=== PATIENT | male | born 1945 | race African-American/Black ===

== ENCOUNTER 2017-12-23 13:07 | Inpatient (IN) | payer MEDICARE ==
--- NOTE | 2017-12-23 16:03 | ER Document Report ---
ED General - General Chief Complaint: Shortness Of Breath Stated Complaint: SHORTNESS OF BREATH Time Seen by Provider: 12/23/17 14:15 Notes: Patient says that he has been feeling sick for the past 2-3 weeks, primarily with a cough and congestion. This morning, patient says he had more difficulty than usual getting his breath and felt he needed fresh air so he went outside. He came back again and said he still felt like he needed more fresh air and then proceeded to pass out in front of his . She witnessed the entire event and she is a registered nurse. This happened about 10:00 this morning. Patient had not eaten anything, but says he did not feel hypoglycemic. Patient was standing and ended up on the floor. He seemed dazed and confused and was very sweaty. Patient denies having any chest pains or abdominal pains. Denies any headache. says the episode lasted perhaps as much as 5 minutes. She says the patient did not have any seizure activity patient has not had previous passing out episodes. Patient is vacationing and visiting from [place] of [place]. - Related Data Allergies/Adverse Reactions: lidocaine Allergy (Verified 12/23/17 13:11) hydromorphone [From Dilaudid] Adverse Reaction (Verified 12/23/17 13:11) lemongrass Allergy (Uncoded 12/23/17 13:11) Home Medications: Metoprolol. CoQ10. Plavix. 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 EENT: Denies eye, ear, nose or mouth or throat pain or other symptoms. CARDIOVASCULAR: Denies chest pain. No swelling of either leg. RESPIRATORY: See HPI. GASTROINTESTINAL: Denies abdominal pain or nausea, vomiting, or diarrhea. GENITOURINARY: Denies difficulty or painful urinating, urinary frequency, blood in urine. MUSCULOSKELETAL: Denies back or neck pain. Denies joint pain or swelling. SKIN: Denies rash or skin lesions. NEUROLOGICAL: See HPI. Denies altered mental status. Denies headache. Denies sensory loss or motor deficits. ALL OTHER SYSTEMS REVIEWED AND NEGATIVE. Physical Exam - Vital signs Vitals: Temp Pulse Resp BP Pulse Ox 99.3 F 98 20 148/83 H 96 12/23/17 13:14 12/23/17 13:14 12/23/17 13:14 12/23/17 13:14 12/23/17 13:14 Interpretation: Normal - Notes Notes: PHYSICAL EXAMINATION: GENERAL: Well-appearing, in no acute distress. Vital signs are all normal. O2 sats 96% on room air. HEAD: Atraumatic, normocephalic. EYES: Pupils equal round and reactive to light, extraocular movements intact. ENT: oropharynx clear without exudates. Moist mucous membranes. NECK: Normal range of motion, supple. No bruits heard in the carotids. LUNGS: Breath sounds clear and equal bilaterally. HEART: Regular rate and rhythm with occasional ectopic beat heard but without murmurs. ABDOMEN: Soft, nontender. No guarding or rebound. No masses. No pulsatile masses felt. No bruits heard. BACK: No tenderness throughout entire back. EXTREMITIES: Normal range of motion without pain. No leg pain or tenderness and negative Homans bilaterally. NEUROLOGICAL: Normal speech, normal gait. Normal sensory, motor, and reflex exams. Awake, alert, and oriented x3. Cranial nerves normal. PSYCH: Normal mood, normal affect. SKIN: Warm, dry, no rashes. Course - Re-evaluation Re-evalutation: 12/23/17 19:18 Chest x-ray shows right lower lobe pneumonia. White count elevated modestly into the 13,000s. Patient's d-dimer was 1.24 so a CTA was ordered. The results were normal. - Vital Signs Vital signs: Temp Pulse Resp BP Pulse Ox 99.3 F 98 26 H 156/103 H 96 12/23/17 13:14 12/23/17 13:14 12/23/17 18:00 12/23/17 16:09 12/23/17 18:00 - Laboratory Result Diagrams: 12/23/17 17:04 12/23/17 17:04 Laboratory results interpreted by me: 12/23/17 12/23/17 12/23/17 16:09 17:04 17:04 WBC 13.3 H RDW 14.4 H Seg Neutrophils % 80.1 H Absolute Neutrophils 10.6 H D-Dimer Glucose 235 H Direct Bilirubin 0.5 H ALT 14 L Total Protein 9.4 H Urine Protein 100 H Urine Glucose (UA) >=500 H Urine Urobilinogen 2.0 H 12/23/17 17:04 WBC RDW Seg Neutrophils % Absolute Neutrophils D-Dimer 1.24 H Glucose Direct Bilirubin ALT Total Protein Urine Protein Urine Glucose (UA) Urine Urobilinogen - Diagnostic Test Radiology reviewed: Image reviewed, Reports reviewed - CTA shows no evidence of pulmonary embolus. Radiology results interpreted by me: 12/23/17 19:18 Chest x-ray shows right lower lobe infiltrates. - EKG Interpretation by [place] EKG shows normal: Sinus rhythm Rate: Normal Rhythm: NSR, PVC's [place]/QRS: LBBB Heart block present: Mobitz 1 - Intermittent Discharge - Discharge Clinical Impression: Right lower lobe pneumonia, Syncope Condition: Stable Disposition: ADMITTED OBSERVATION Admitting Provider: Hospitalist Unit Admitted: Telemetry
--- NOTE | 2017-12-23 16:43 | RADIOLOGY REPORT (SQ) ---
EXAM DESCRIPTION: CHEST 2 VIEWS COMPLETED DATE/TIME: 12/23/2017 4:27 pm REASON FOR STUDY: Cough for 2 weeks, difficulty breathing, syncope COMPARISON: None. EXAM PARAMETERS: NUMBER OF VIEWS: two views TECHNIQUE: Digital Frontal and Lateral radiographic views of the chest acquired. RADIATION DOSE: NA LIMITATIONS: none FINDINGS: LUNGS AND PLEURA: Patchy opacification in the right base and posteriorly and inferiorly on the lateral view. MEDIASTINUM AND HILAR STRUCTURES: No masses or contour abnormalities. HEART AND VASCULAR STRUCTURES: Heart normal size. No evidence for failure. BONES: No acute findings. HARDWARE: Sternotomy wires. OTHER: No other significant finding. IMPRESSION: Right lower lobe pneumonia. TECHNICAL DOCUMENTATION: JOB ID: [id number] [email or web address]- All Rights Reserved Reading location - IP/workstation name: [email or web address]
[2017-12-23 16:54] LABS: APPEARANCE,URINE CLEAR; BILIRUBIN,URINE NEGATIVE (NEGATIVE); COLOR,URINE YELLOW; GLUCOSE, URINE >=500 mg/dL (NEGATIVE); KETONES,URINE NEGATIVE (NEGATIVE); LEUKOCYTE ESTERASE,URINE NEGATIVE (NEGATIVE); NITRITE,URINE NEGATIVE (NEGATIVE); PROTEIN,URINE 100 mg/dL (NEGATIVE); URINE SPECIFIC GRAVITY 1.013
[2017-12-23 17:12] LABS: ABSOLUTE BASOPHILS # (AUTO) 0.1 10^3/uL (0.0-0.2); ABSOLUTE MONOCYTES (AUTO) 0.5 10^3/uL (0.1-1.4); ABSOLUTE NEUT (AUTO) 10.6 10^3/uL (1.7-8.2); BASOPHILS % (AUTO) 0.6 % (0-2); HEMATOCRIT 43.6 % (37.9-51.0); HEMOGLOBIN 14.6 g/dL (13.5-17.0); LYMPHOCYTES % (AUTO) 15.4 % (13-45); MEAN CORPUSCULAR HEMOGLOBIN 28.5 pg (27.0-33.4); MEAN CORPUSCULAR HGB CONC 33.4 g/dL (32.0-36.0); MEAN CORPUSCULAR VOLUME 85 fl (80-97); MONOCYTES % (AUTO) 3.9 % (3-13); PLATELET COUNT 190 10^3/uL (150-450); RED CELL DISTRIBUTION WIDTH 14.4 % (11.5-14.0); SEGMENTED NEUTROPHILS % (AUTO) 80.1 % (42-78); TOTAL CELLS COUNTED % (AUTO) 100 %; WHITE BLOOD COUNT 13.3 10^3/uL (4.0-10.5)
[2017-12-23 17:36] LABS: ALANINE AMINOTRANSFERASE 14 U/L (21-72); ALBUMIN 4.4 g/dL (3.5-5.0); ALKALINE PHOSPHATASE 66 U/L (38-126); ANION GAP 13 (5-19); ASPARTATE AMINO TRANSFERASE 35 U/L (17-59); BILIRUBIN,DIRECT 0.5 mg/dL (0.0-0.4); BILIRUBIN,TOTAL 1.2 mg/dL (0.2-1.3); BLOOD UREA NITROGEN 10 mg/dL (7-20); CARBON DIOXIDE 28 mmol/L (22-30); CHLORIDE 101 mmol/L (98-107); GLUCOSE 235 mg/dL (75-110); SODIUM 141.8 mmol/L (137-145); TOTAL PROTEIN 9.4 g/dL (6.3-8.2)
[2017-12-23 17:49] LABS: TROPONIN I < 0.012 ng/mL
--- NOTE | 2017-12-23 19:00 | RADIOLOGY REPORT (SQ) ---
EXAM DESCRIPTION: CTA CHEST COMPLETED DATE/TIME: 12/23/2017 6:45 pm REASON FOR STUDY: Difficulty breathing and syncope COMPARISON: Chest x-ray 12/23/2017 TECHNIQUE: CT scan of the chest performed using helical scanning technique with dynamic intravenous contrast injection. Images reviewed with lung, soft tissue and bone windows. Reconstructed coronal and sagittal MPR images reviewed. Additional 3 dimensional post-processing performed to develop Maximal Intensity Projection images ([place] P). All images stored on PACS. All CT scanners at this facility use dose modulation, iterative reconstruction, and/or weight based d osing when appropriate to reduce radiation dose to as low as reasonably achievable (ALARA). [facility]: Dose Right [facility]: CareDose [facility]: Dose Right [facility]: Teradose 4D [facility]: [employer] CONTRAST TYPE AND DOSE: contrast/concentration: Isovue 370.00 mg/ml; Total Contrast Delivered: 78.0 ml; Total Saline Delivered: 90.0 ml Contrast bolus optimized for the pulmonary arteries. Not diagnostic for the aorta. RENAL FUNCTION: BUN 10 creatinine 1.16 RADIATION DOSE: CT Rad equipment meets quality standard of care and radiation dose reduction techniq ues were employed. CTDIvol: 19.8 - 27.4 mGy. DLP: 956 mGy-cm. . LIMITATIONS: None. FINDINGS: LUNGS AND PLEURA: Multicentric opacification in the right lower lobe. Some air bronchogra ms are present. AORTA AND GREAT VESSELS: No aneurysm. Contrast bolus not optimized for the aorta. HEART: No pericardial effusion. Moderate to marked coronary artery calcifications. PULMONARY ARTERIES: No emboli visualized in the main pulmonary arteries or the segmental branches. HILAR AND MEDIASTINAL STRUCTURES: No identified masses or abnormal nodes. HARDWARE: Sternotomy wires. UPPER ABDOMEN: No significant findings. Limited exam. THYROID AND OTHER SOFT TISSUES: No masses. No adenopathy. BONES: No acute or significant finding. 3D MIPS: Confirm above findings. OTHER: No other significant finding. IMPRESSION: 1. There is no evidence of pulmonary emboli. 2. Multicentric right lower lobe pneumonia. Recommend follow-up imaging after treatment. COMMENT: Quality ID # [id number]: Final reports with documentation of one or more dose reduction techniques (e.g., Automated exposure control, adjustment of the mA and/or kV according to patient size, use of iterative reconstruction technique) TECHNICAL DOCUMENTATION: JOB ID: [id number] All Rights Reserved Reading location - IP/workstation name: [email or web address]
[2017-12-23] MEDS ORDERED: CEFTRIAXONE INJ 1000 MG VIAL IV ONE (19:11)
[2017-12-23] MEDS ORDERED: HYDRALAZINE HCL INJ/PF 20 MG/1 ML SDV IV PRN (19:35)
[2017-12-23] MEDS ORDERED: GUAIFENESIN SYRP 200 MG/10 ML UDC PO PRN (19:36)
[2017-12-23] MEDS ORDERED: LEVALBUTEROL HCL NEB 1.25 MG/3 ML AMPUL NEB PRN (19:36)
[2017-12-23] MEDS ORDERED: IPRATROPIUM BROMIDE 0.02% NEB 0.5 MG/2.5 ML AMPUL NEB PRN (19:36)
[2017-12-23] MEDS ORDERED: ACETAMINOPHEN 325 MG TABLET PO PRN (19:36)
[2017-12-23] MEDS ORDERED: GLUCAGON,HUMAN RECOMB 1 MG INJ IM PRN (19:36)
[2017-12-23] MEDS ORDERED: DEXTROSE 40% GEL 15 GM TUBE PO PRN ×2 (19:36)
[2017-12-23] MEDS ORDERED: DEXTROSE 50%-WATER 25 GM/50 ML DISP.SYRIN IV PRN ×2 (19:36)
[2017-12-23] MEDS ORDERED: NORMAL SALINE 1000 ML 1,000 ML IV ONE (19:39)
--- NOTE | 2017-12-23 20:44 | ER Document Report ---
ED Medical Screen (RME) - General Chief Complaint: Shortness Of Breath Stated Complaint: SHORTNESS OF BREATH Time Seen by Provider: 12/23/17 14:15 Notes: I have greeted and performed a rapid initial assessment of this patient. A comprehensive ED assessment and evaluation of the patient, analysis of test results and completion of the medical decision making process will be conducted by additional ED providers. PHYSICAL EXAMINATION: GENERAL: Well-appearing, well-nourished and in no acute distress. HEAD: Atraumatic, normocephalic. EYES: Pupils equal round extraocular movements intact, conjunctiva are normal. ENT: Nares patent NECK: Normal range of motion LUNGS: No respiratory distress Musculoskeletal: Normal range of motion NEUROLOGICAL: Normal speech, normal gait. PSYCH: Normal mood, normal affect. SKIN: Warm, Dry, normal turgor, no rashes or lesions noted. - Related Data Allergies/Adverse Reactions: lidocaine Allergy (Verified 12/23/17 13:11) hydromorphone [From Dilaudid] Adverse Reaction (Verified 12/23/17 13:11) lemongrass Allergy (Uncoded 12/23/17 13:11) Home Medications: Metoprolol. CoQ10. Plavix. Insulin Past Medical History - Social History Chew tobacco use (# tins/day): No Frequency of alcohol use: None Drug Abuse: None - Past Medical History Cardiac Medical History: Reports: Hx Hypercholesterolemia, Hx Hypertension Endocrine Medical History: Reports: Hx Diabetes Mellitus Type 2 Renal/ Medical History: Denies: Hx Peritoneal Dialysis Past Surgical History: Reports: Hx Cardiac Surgery, Hx Orthopedic Surgery - Left arm, Left rotator cuff Physical Exam - Vital signs Vitals: Temp Pulse Resp BP Pulse Ox 99.3 F 98 20 148/83 H 96 12/23/17 13:14 12/23/17 13:14 12/23/17 13:14 12/23/17 13:14 12/23/17 13:14 Course - Vital Signs Vital signs: Temp Pulse Resp BP Pulse Ox 99.3 F 98 20 148/83 H 96 12/23/17 13:14 12/23/17 13:14 12/23/17 13:14 12/23/17 13:14 12/23/17 13:14
[2017-12-23 20:47] LABS: CREATINE KINASE MB 0.52 ng/mL (<4.55)
[2017-12-23 20:58] LABS: TROPONIN I < 0.012 ng/mL
[2017-12-23] MEDS: IPRATROPIUM BROMIDE 0.02% NEB 0.5 MG/2.5 ML AMPUL NEB SCH (21:57)
[2017-12-23] MEDS: LEVALBUTEROL HCL NEB 1.25 MG/3 ML AMPUL NEB SCH (21:57)
[2017-12-23] MEDS: HEPARIN SOD (PORCINE) 5,000 UNIT/ML 1 ML SYRINGE SUBCUT SCH (22:05)
[2017-12-23] MEDS: FLUTICASONE NASAL SPRAY 50 MCG/SPRY 120 SPRAY/16 GM NASL SCH (22:05)
[2017-12-23] MEDS: LEVOFLOXACIN 750 MG/D5W RTU 750 MG/150 ML RTUPB IV SCH (22:05)
--- NOTE | 2017-12-23 23:42 | EKG REPORT ---
SEVERITY:- ABNORMAL ECG - SINUS TACHYCARDIA VENTRICULAR PREMATURE COMPLEX MOBITZ I AV BLOCK (WENCKEBACH) LEFT BUNDLE BRANCH BLOCK : Confirmed by: Vadim Alamo 23-Dec-2017 23:41:15
[2017-12-24] MEDS: LEVALBUTEROL HCL NEB 1.25 MG/3 ML AMPUL NEB SCH ×4 (02:11→20:21)
[2017-12-24] MEDS: IPRATROPIUM BROMIDE 0.02% NEB 0.5 MG/2.5 ML AMPUL NEB SCH ×4 (02:11→20:22)
[2017-12-24 05:08] LABS: HEMATOCRIT 37.4 % (37.9-51.0); MEAN CORPUSCULAR HEMOGLOBIN 28.5 pg (27.0-33.4); MEAN CORPUSCULAR HGB CONC 33.5 g/dL (32.0-36.0); MEAN CORPUSCULAR VOLUME 85 fl (80-97); PLATELET COUNT 154 10^3/uL (150-450); RED CELL DISTRIBUTION WIDTH 14.4 % (11.5-14.0); WHITE BLOOD COUNT 10.8 10^3/uL (4.0-10.5)
[2017-12-24 05:28] LABS: HEMOGLOBIN 12.5 g/dL (13.5-17.0)
[2017-12-24 05:31] LABS: ANION GAP 10 (5-19); BLOOD UREA NITROGEN 10 mg/dL (7-20); CALCIUM 8.9 mg/dL (8.4-10.2); CARBON DIOXIDE 25 mmol/L (22-30); CHLORIDE 105 mmol/L (98-107); CREATINE KINASE 100 U/L (55-170); GLUCOSE 161 mg/dL (75-110); POTASSIUM 3.6 mmol/L (3.6-5.0); SODIUM 140.3 mmol/L (137-145)
[2017-12-24 05:41] LABS: CREATINE KINASE MB 0.62 ng/mL (<4.55); TROPONIN I 0.015 ng/mL
[2017-12-24] MEDS: HEPARIN SOD (PORCINE) 5,000 UNIT/ML 1 ML SYRINGE SUBCUT SCH ×3 (06:35→22:18)
--- NOTE | 2017-12-24 06:43 | PDOC H&P ---
History of Present Illness Admission Date/PCP: 12/23/17 19:42 Patient complains of: Cough History of Present Illness: APURVA BALL is a 72 year old male with history of coronary artery disease status post coronary artery bypass graft, left bundle branch block, diabetes and dyslipidemia. Patient presents after 2-3 weeks of cough and shortness of breath which was acutely worse prior to presentation resulting in presyncope. In the emergency room is found to have a left lower lobe infiltrate on CT, he started on empiric antibiotics and for the hospitalist for admission. Patient denies previous pneumonia he admits poor dentition and disintegration of partials which he thinks he may have ingested. He denies chest pain nausea, vomiting or recent antibiotics. 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, Other - Bypass surgery in 2010 followed by stents in 2011 Pulmonary Medical History: Reports: Other - Patient had DVTs and pulmonary emboli when he had his CABG Endocrine Medical History: Reports: Diabetes Mellitus Type 1, Diabetes Mellitus Type 2 Past Surgical History Past Surgical History: Reports: Coronary Artery Bypass Graft, Orthopedic Surgery - Left arm, Left rotator cuff Social History Information Source: Patient Smoking Status: Never Smoker Frequency of Alcohol Use: None Hx Recreational Drug Use: No Drugs: None Hx Prescription Drug Abuse: No - Advance Directive Resuscitation Status: Full Code Family History Family History: DM Parental Family History Reviewed: Yes Children Family History Reviewed: Yes Sibling(s) Family History Reviewed.: Yes Medication/Allergy Home Medications: Aspirin [Aspirin EC] 81 mg PO DAILY 12/23/17 Bimatoprost [Lumigan 0.01% Oph Soln 2.5 ml/Bottle] 1 drop OU QPM 12/23/17 Brimonidine Tartrate/Timolol [Combigan 0.2%-0.5% Eye Drops] 1 dropperful OU BID 12/23/17 Cholecalciferol (Vitamin D3) [Vitamin D3 1000 Unit Tablet] 1,000 unit PO DAILY 12/23/17 Clopidogrel Bisulfate [Plavix 75 mg Tablet] 75 mg PO DAILY 12/23/17 Metoprolol Succinate [Toprol Xl 25 mg Tab.sr] 25 mg PO DAILY MDD LAST FILLED 07/1312/23/17 Pantoprazole Sodium [Protonix] 40 mg PO DAILY MDD LAST FILLED 07/08/17 12/23/17 Simvastatin [Zocor 40 mg Tablet] 40 mg PO QHS MDD LAST FILLED 07-08-17 12/23/17 Valsartan [Diovan 80 mg Tablet] 80 mg PO DAILY MDD LAST FILLED 07-09-17 Allergies/Adverse Reactions: lidocaine Allergy (Verified 12/23/17 13:11) hydromorphone [From Dilaudid] Adverse Reaction (Verified 12/23/17 13:11) lemongrass Allergy (Uncoded 12/23/17 13:11) Review of Systems Constitutional: ABSENT: chills, fever(s), headache(s), weight gain, weight loss Eyes: ABSENT: visual disturbances Ears: ABSENT: hearing changes Cardiovascular: ABSENT: chest pain, dyspnea on exertion, edema, orthropnea, palpitations Respiratory: ABSENT: cough, hemoptysis Gastrointestinal: ABSENT: abdominal pain, constipation, diarrhea, hematemesis, hematochezia, nausea, vomiting Genitourinary: ABSENT: dysuria, hematuria Musculoskeletal: ABSENT: joint swelling Integumentary: ABSENT: rash, wounds Neurological: ABSENT: abnormal gait, abnormal speech, confusion, dizziness, focal weakness, syncope Psychiatric: ABSENT: anxiety, depression, homidical ideation, suicidal ideation Endocrine: ABSENT: cold intolerance, heat intolerance, polydipsia, polyuria Hematologic/Lymphatic: ABSENT: easy bleeding, easy bruising Physical Exam Vital Signs: Temp Pulse Resp BP Pulse Ox 99.8 F 80 16 123/67 96 12/23/17 23:01 12/24/17 02:11 12/24/17 02:11 12/23/17 23:01 12/24/17 04:00 Pulse Oximeter Continuous Start: 12/23/17 19: 36 Freq: RTQ4 Status: Active Document 12/24/17 04:00 CMI (Rec: 12/24/17 04:28 CMI [email or web address]) Pulse Oximetry Assessment Oxygen Saturation (92-100) 96 Oxygen Delivery Method Room Air Fraction of Inspired Oxygen (FIO2) 21 Equipment Usage Equipment in Use Continuous SpO2 Machine # 6 Intake & Output 12/22/17 12/23/17 12/24/17 11:59 11:59 11:59 Intake Total 225 Balance 225 Weight 91.5 kg General appearance: PRESENT: no acute distress, cooperative, mild distress, well -developed, well-nourished Head exam: PRESENT: atraumatic, normocephalic Eye exam: PRESENT: conjunctiva pink, EOMI, PERRLA. ABSENT: scleral icterus Ear exam: PRESENT: normal external ear exam Mouth exam: PRESENT: moist, tongue midline Neck exam: ABSENT: carotid bruit, JVD, lymphadenopathy, thyromegaly Respiratory exam: PRESENT: accessory muscle use, clear to auscultation jaime, crackles, rales, tachypnea. ABSENT: rhonchi, wheezes Cardiovascular exam: PRESENT: RRR. ABSENT: diastolic murmur, rubs, systolic murmur Pulses: PRESENT: normal dorsalis pedis pul Vascular exam: PRESENT: normal capillary refill GI/Abdominal exam: PRESENT: normal bowel sounds, soft. ABSENT: distended, guarding, mass, organolmegaly, rebound, tenderness Rectal exam: PRESENT: deferred Extremities exam: PRESENT: full ROM. ABSENT: calf tenderness, clubbing, pedal edema Neurological exam: PRESENT: alert, awake, oriented to person, oriented to place , oriented to time, oriented to situation, CN II-XII grossly intact. ABSENT: motor sensory deficit Psychiatric exam: PRESENT: appropriate affect, normal mood. ABSENT: homicidal ideation, suicidal ideation Skin exam: PRESENT: dry, intact, warm. ABSENT: cyanosis, rash Results Laboratory Results: 12/24/17 04:02 12/24/17 04:02 12/24/17 12/24/17 04:02 04:02 WBC 10.8 H RBC 4.40 Hgb 12.5 L D Hct 37.4 L MCV 85 MCH 28.5 MCHC 33.5 RDW 14.4 H Plt Count 154 Sodium 140.3 Potassium 3.6 Chloride 105 Carbon Dioxide 25 Anion Gap 10 BUN 10 Creatinine 1.11 Est GFR ( Amer) > 60 Est GFR (Non-Af Amer) > 60 Glucose 161 H Calcium 8.9 12/23/17 12/23/17 12/24/17 20:00 20:00 04:02 Creatine Kinase 102 CK-MB (CK-2) 0.52 0.62 Troponin I < 0.012 0.015 12/24/17 04:02 Creatine Kinase 100 CK-MB (CK-2) Troponin I Impressions: Chest X-Ray 12/23/17 15:55 IMPRESSION: Right lower lobe pneumonia. Chest/Abdomen CTA 12/23/17 17:51 IMPRESSION: 1. There is no evidence of pulmonary emboli. 2. Multicentric right lower lobe pneumonia. Recommend follow-up imaging after treatment. Assessment & Plan - Diagnosis (1) Right lower lobe pneumonia Is this a current diagnosis for this admission?: Yes Plan: Complicated by possible aspiration of dental material, empiric antibiotics initiated, supplemental oxygen follow-up CBC and blood culture. (2) Pre-syncope Is this a current diagnosis for this admission?: Yes Plan: Secondary to paroxysms of cough, CT negative for PE, telemetry monitoring (3) Coronary artery disease Is this a current diagnosis for this admission?: Yes Plan: Aspirin and outpatient regiment (4) Diabetes Is this a current diagnosis for this admission?: Yes Plan: Long-acting insulin with Humalog sliding scale - Time Time Spent: 30 to 50 Minutes - Inpatient Certification Medical Necessity: Need Close Monitoring Due to Risk of Patient Decompensation
[2017-12-24] MEDS ORDERED: VANCOMYCIN HCL 0 MG in DEXTROSE 5%-WATER 250 ML IV NR (10:30)
[2017-12-24] MEDS: FLUTICASONE NASAL SPRAY 50 MCG/SPRY 120 SPRAY/16 GM NASL SCH ×2 (11:05→22:18)
[2017-12-24] MEDS ORDERED: VANCOMYCIN HCL 1,000 MG in DEXTROSE 5%-WATER 250 ML IV ONE (11:30)
[2017-12-24] MEDS: INSULIN LISPRO 100 UNIT/ML 3 ML VIAL SUBCUT PRN ×2 (11:36→22:19)
--- NOTE | 2017-12-24 11:48 | Progress Note ---
Provider Note Provider Note: 12/24/2017 blood culture is positive for gram-positive cocci We will add vancomycin IV until identification sensitivity available
[2017-12-24 12:36] LABS: CREATINE KINASE MB 0.91 ng/mL (<4.55)
[2017-12-24 12:41] LABS: TROPONIN I < 0.012 ng/mL
[2017-12-24] MEDS: VANCOMYCIN HCL 1,000 MG in DEXTROSE 5%-WATER 250 ML IV SCH (22:19)
[2017-12-25] MEDS: LEVOFLOXACIN 750 MG/D5W RTU 750 MG/150 ML RTUPB IV SCH ×2 (00:02→22:13)
[2017-12-25] MEDS: IPRATROPIUM BROMIDE 0.02% NEB 0.5 MG/2.5 ML AMPUL NEB SCH ×4 (01:46→19:33)
[2017-12-25] MEDS: LEVALBUTEROL HCL NEB 1.25 MG/3 ML AMPUL NEB SCH ×4 (01:46→19:32)
[2017-12-25] MEDS: HEPARIN SOD (PORCINE) 5,000 UNIT/ML 1 ML SYRINGE SUBCUT SCH ×3 (06:16→22:12)
[2017-12-25] MEDS: INSULIN LISPRO 100 UNIT/ML 3 ML VIAL SUBCUT PRN ×3 (08:20→22:12)
[2017-12-25] MEDS: VANCOMYCIN HCL 1,000 MG in DEXTROSE 5%-WATER 250 ML IV SCH ×2 (10:04→22:12)
[2017-12-25] MEDS: FLUTICASONE NASAL SPRAY 50 MCG/SPRY 120 SPRAY/16 GM NASL SCH ×2 (10:04→22:12)
--- NOTE | 2017-12-25 15:34 | PDOC PROGRESS REPORT ---
Subjective Progress Note for:: 12/24/17 Subjective:: states feels better no chest pain or SOB Reason For Visit: DIABETES SOB PNEUMONIA Physical Exam Vital Signs: Temp Pulse Resp BP Pulse Ox 98.4 F 93 16 156/99 H 100 12/25/17 11:14 12/25/17 11:14 12/25/17 11:14 12/25/17 11:14 12/25/17 12:56 Pulse Oximeter Continuous Start: 12/23/17 19: 36 Freq: RTQ4 Status: Active Document 12/25/17 12:56 [facility] (Rec: 12/25/17 12:57 [facility] [email or web address]) Pulse Oximetry Assessment Oxygen Saturation (92-100) 100 Oxygen Delivery Method Room Air Fraction of Inspired Oxygen (FIO2) 21 Equipment Usage Equipment in Use Continuous SpO2 Machine # 6 Intake & Output 12/24/17 12/25/17 12/26/17 00:59 00:59 00:59 Intake Total 3075 1126 Balance 3075 1126 Weight 91.5 kg 91.5 kg 91.4 kg General appearance: PRESENT: no acute distress, cooperative, mild distress, well -developed, well-nourished Head exam: PRESENT: atraumatic, normocephalic Eye exam: PRESENT: conjunctiva pink, EOMI, PERRLA. ABSENT: scleral icterus Mouth exam: PRESENT: moist, tongue midline Neck exam: ABSENT: carotid bruit, JVD, lymphadenopathy, thyromegaly Respiratory exam: PRESENT: accessory muscle use, clear to auscultation jaime, crackles, rales, tachypnea. ABSENT: rhonchi, wheezes Cardiovascular exam: PRESENT: RRR. ABSENT: diastolic murmur, rubs, systolic murmur Pulses: PRESENT: normal dorsalis pedis pul Vascular exam: PRESENT: normal capillary refill GI/Abdominal exam: PRESENT: normal bowel sounds, soft. ABSENT: distended, guarding, mass, organolmegaly, rebound, tenderness Extremities exam: PRESENT: full ROM. ABSENT: calf tenderness, clubbing, pedal edema Neurological exam: PRESENT: alert, awake, oriented to person, oriented to place , oriented to time, oriented to situation, CN II-XII grossly intact. ABSENT: motor sensory deficit Skin exam: PRESENT: dry, intact, warm. ABSENT: cyanosis, rash Results Laboratory Results: 12/24/17 04:02 12/24/17 04:02 12/23/17 12/23/17 12/24/17 20:00 20:00 04:02 Creatine Kinase 102 CK-MB (CK-2) 0.52 0.62 Troponin I < 0.012 0.015 12/24/17 12/24/17 12/24/17 04:02 11:47 11:47 Creatine Kinase 100 98 CK-MB (CK-2) 0.91 Troponin I < 0.012 Impressions: Chest X-Ray 12/23/17 15:55 IMPRESSION: Right lower lobe pneumonia. Chest/Abdomen CTA 12/23/17 17:51 IMPRESSION: 1. There is no evidence of pulmonary emboli. 2. Multicentric right lower lobe pneumonia. Recommend follow-up imaging after treatment. Assessment & Plan - Diagnosis (1) Coronary artery disease Is this a current diagnosis for this admission?: Yes (2) Diabetes Is this a current diagnosis for this admission?: Yes (3) Pre-syncope Is this a current diagnosis for this admission?: Yes (4) Right lower lobe pneumonia Is this a current diagnosis for this admission?: Yes - Time Time Spent with patient: continue present management Time Spent with patient: 25-34 minutes
--- NOTE | 2017-12-25 15:41 | PDOC PROGRESS REPORT ---
Subjective Progress Note for:: 12/25/17 Subjective:: feels well no complaints Reason For Visit: DIABETES SOB PNEUMONIA Physical Exam Vital Signs: Temp Pulse Resp BP Pulse Ox 98.4 F 93 16 156/99 H 100 12/25/17 11:14 12/25/17 11:14 12/25/17 11:14 12/25/17 11:14 12/25/17 12:56 Pulse Oximeter Continuous Start: 12/23/17 19: 36 Freq: RTQ4 Status: Active Document 12/25/17 12:56 [facility] (Rec: 12/25/17 12:57 [facility] [email or web address]) Pulse Oximetry Assessment Oxygen Saturation (92-100) 100 Oxygen Delivery Method Room Air Fraction of Inspired Oxygen (FIO2) 21 Equipment Usage Equipment in Use Continuous SpO2 Machine # 6 Intake & Output 12/24/17 12/25/17 12/26/17 00:59 00:59 00:59 Intake Total 3075 1126 Balance 3075 1126 Weight 91.5 kg 91.5 kg 91.4 kg General appearance: PRESENT: no acute distress, cooperative, mild distress, well -developed, well-nourished Head exam: PRESENT: atraumatic, normocephalic Eye exam: PRESENT: conjunctiva pink, EOMI, PERRLA. ABSENT: scleral icterus Mouth exam: PRESENT: moist, tongue midline Neck exam: ABSENT: carotid bruit, JVD, lymphadenopathy, thyromegaly Respiratory exam: PRESENT: accessory muscle use, clear to auscultation jaime, crackles, rales, tachypnea. ABSENT: rhonchi, wheezes Cardiovascular exam: PRESENT: RRR. ABSENT: diastolic murmur, rubs, systolic murmur Pulses: PRESENT: normal dorsalis pedis pul Vascular exam: PRESENT: normal capillary refill GI/Abdominal exam: PRESENT: normal bowel sounds, soft. ABSENT: distended, guarding, mass, organolmegaly, rebound, tenderness Extremities exam: PRESENT: full ROM. ABSENT: calf tenderness, clubbing, pedal edema Neurological exam: PRESENT: alert, awake, oriented to person, oriented to place , oriented to time, oriented to situation, CN II-XII grossly intact. ABSENT: motor sensory deficit Skin exam: PRESENT: dry, intact, warm. ABSENT: cyanosis, rash Results Laboratory Results: 12/24/17 04:02 05/30/18 04:02 12/23/17 12/23/17 12/24/17 20:00 20:00 04:02 Creatine Kinase 102 CK-MB (CK-2) 0.52 0.62 Troponin I < 0.012 0.015 12/24/17 12/24/17 12/24/17 04:02 11:47 11:47 Creatine Kinase 100 98 CK-MB (CK-2) 0.91 Troponin I < 0.012 EKG Comments: monitor : arrhythmias Vpc's Impressions: Chest X-Ray 12/23/17 15:55 IMPRESSION: Right lower lobe pneumonia. Chest/Abdomen CTA 12/23/17 17:51 IMPRESSION: 1. There is no evidence of pulmonary emboli. 2. Multicentric right lower lobe pneumonia. Recommend follow-up imaging after treatment. Assessment & Plan - Diagnosis (1) Coronary artery disease Is this a current diagnosis for this admission?: Yes (2) Diabetes Is this a current diagnosis for this admission?: Yes (3) Pre-syncope Is this a current diagnosis for this admission?: Yes (4) Right lower lobe pneumonia Is this a current diagnosis for this admission?: Yes (5) Cardiac arrhythmia Qualifiers: Premature depolarization type: ventricular Is this a current diagnosis for this admission?: Yes Plan: echocardiogram cardiology consult
[2017-12-25] MEDS ORDERED: BRIMONIDINE TARTRATE OU SCH (18:00)
[2017-12-25] MEDS ORDERED: [UNRECOGNIZED DRUG - OTHER] OU SCH (18:00)
[2017-12-25] MEDS ORDERED: TIMOLOL OU SCH (18:00)
[2017-12-25] MEDS: VALSARTAN 80 MG TABLET PO SCH (18:54)
[2017-12-25] MEDS: METOPROLOL SUCCINATE 25 MG TAB.SR.24H PO SCH (18:55)
[2017-12-25] MEDS: CLOPIDOGREL BISULFATE 75 MG TABLET PO SCH (18:55)
[2017-12-25] MEDS: BIMATOPROST 0.01% OPH SOLN 2.5 ML/BOTTLE OU SCH (18:56)
[2017-12-25] MEDS: TIMOLOL MALEATE 0.5% OPH SOLN 5 ML OU SCH (22:12)
[2017-12-25] MEDS: SIMVASTATIN 40 MG TABLET PO SCH (22:12)
[2017-12-25] MEDS: BRIMONIDINE TARTRATE 0.2% OPH SOLN 5 ML OU SCH (22:12)
[2017-12-25 22:27] LABS: VANCOMYCIN,TROUGH 9.3 ug/mL (5.0-20.0)
--- NOTE | 2017-12-25 23:42 | Physician Advisory Note ---
Physician Advisor ProgressNote .: Pursuant to the plan for [facility], I have reviewed the medical record for this patient. Physician Advisor Statement: Pt has had tachypnea, tachycardia, fever to 102.9, & WBC 13.3, with increased work of breathing, but no delilah bypoxemia documented so far. Evidence of PNA has been nicely documented, including: fever, tachycardia, tachypnea, leukocytosis, infiltrate, cough, SOB, accessory muscle use. BCs: 1 of 2 growing GPC in pairs. Please consider documenting, if you agree: 1. "RLL PNA, suspect type" (Gram positive/specific organism from cx? gram neg? ...) 2. "Possible sepsis, due to PNA, present on admission, evidenced by ", or "Gram pos bacteremia" (which indicates for coding that there was no sepsis) , & "sepsis was ruled out" (to help the sepsis committee know whether this dx was made or ruled out for certain), or "(+)BC, suspect contaminant" 3. "syncope, suspect due to " (sepsis? hypovolemia? ...) 4. Please list as Dx #1 in each note the Principal Dx (the main dx requiring adm) Thanks! CK
[2017-12-26] MEDS: IPRATROPIUM BROMIDE 0.02% NEB 0.5 MG/2.5 ML AMPUL NEB SCH ×4 (02:08→20:17)
[2017-12-26] MEDS: LEVALBUTEROL HCL NEB 1.25 MG/3 ML AMPUL NEB SCH ×4 (02:09→20:16)
[2017-12-26] MEDS: LANSOPRAZOLE 30 MG TAB.RAP.DR PO SCH (06:15)
[2017-12-26] MEDS: HEPARIN SOD (PORCINE) 5,000 UNIT/ML 1 ML SYRINGE SUBCUT SCH ×3 (06:15→22:12)
[2017-12-26] MEDS ORDERED: (PENDING PHARMACY ID) (Insulin Glargine,Hum.Rec.Anlog [Toujeo Solostar] 40 UNIT) SQ SCH (10:00)
[2017-12-26] MEDS: ASPIRIN 81 MG TABLET, ENT COATED PO SCH (10:13)
[2017-12-26] MEDS: VANCOMYCIN HCL 1,000 MG in DEXTROSE 5%-WATER 250 ML IV SCH (10:14)
[2017-12-26] MEDS: CHOLECALCIFEROL (D3) 1,000 UNIT TABLET PO SCH (10:14)
[2017-12-26] MEDS: FLUTICASONE NASAL SPRAY 50 MCG/SPRY 120 SPRAY/16 GM NASL SCH ×2 (10:14→22:12)
[2017-12-26] MEDS: TIMOLOL MALEATE 0.5% OPH SOLN 5 ML OU SCH ×2 (10:15→22:12)
[2017-12-26] MEDS: BRIMONIDINE TARTRATE 0.2% OPH SOLN 5 ML OU SCH ×2 (10:15→22:12)
--- NOTE | 2017-12-26 13:00 | PDOC PROGRESS REPORT ---
Subjective Progress Note for:: 12/26/17 Subjective:: Patient is doing extremely well No hypoxemia No chest pain Minimal shortness of breath Alert and awake Blood cultures showed strep pneumonia sensitive to all antibiotics Patient's antibiotic treatment has been switched to ceftriaxone IV 2 g IV piggyback daily Monitor now shows now normal sinus rhythm; no significant arrhythmias Echocardiogram showed normal left ventricular function Reason For Visit: DIABETES SOB PNEUMONIA Physical Exam Vital Signs: Temp Pulse Resp BP Pulse Ox 98.2 F 77 12 145/86 H 96 12/26/17 11:19 12/26/17 11:19 12/26/17 11:19 12/26/17 11:19 12/26/17 11:38 Pulse Oximeter Continuous Start: 12/23/17 19: 36 Freq: RTQ4 Status: Active Document 12/26/17 11:38 [facility] (Rec: 12/26/17 11:38 LDA [email or web address]) Pulse Oximetry Assessment Oxygen Saturation (92-100) 96 Oxygen Delivery Method Room Air Fraction of Inspired Oxygen (FIO2) 21 Equipment Usage Equipment in Use Continuous SpO2 Machine # 6 Intake & Output 12/25/17 12/26/17 12/27/17 00:59 00:59 00:59 Intake Total 3075 1914 615 Balance 3075 1914 615 Weight 91.5 kg 91.4 kg 93 kg General appearance: PRESENT: no acute distress, cooperative, mild distress, well -developed, well-nourished Head exam: PRESENT: atraumatic, normocephalic Eye exam: PRESENT: conjunctiva pink, EOMI, PERRLA. ABSENT: scleral icterus Mouth exam: PRESENT: moist, tongue midline Neck exam: ABSENT: carotid bruit, JVD, lymphadenopathy, thyromegaly Respiratory exam: PRESENT: accessory muscle use, clear to auscultation jaime, crackles, rales, tachypnea. ABSENT: rhonchi, wheezes Cardiovascular exam: PRESENT: RRR. ABSENT: diastolic murmur, rubs, systolic murmur Pulses: PRESENT: normal dorsalis pedis pul Vascular exam: PRESENT: normal capillary refill GI/Abdominal exam: PRESENT: normal bowel sounds, soft. ABSENT: distended, guarding, mass, organolmegaly, rebound, tenderness Extremities exam: PRESENT: full ROM. ABSENT: calf tenderness, clubbing, pedal edema Neurological exam: PRESENT: alert, awake, oriented to person, oriented to place , oriented to time, oriented to situation, CN II-XII grossly intact. ABSENT: motor sensory deficit Skin exam: PRESENT: dry, intact, warm. ABSENT: cyanosis, rash Results Laboratory Results: 12/24/17 04:02 12/25/17 21:56 12/25/17 21:56 Creatinine 1.04 Est GFR ( Amer) > 60 Est GFR (Non-Af Amer) > 60 12/23/17 20:00 Blood Blood Culture - Final Streptococcus Pneumoniae 12/23/17 12/23/17 12/24/17 20:00 20:00 04:02 Creatine Kinase 102 CK-MB (CK-2) 0.52 0.62 Troponin I < 0.012 0.015 12/24/17 12/24/17 12/24/17 04:02 11:47 11:47 Creatine Kinase 100 98 CK-MB (CK-2) 0.91 Troponin I < 0.012 Impressions: Chest X-Ray 12/23/17 15:55 IMPRESSION: Right lower lobe pneumonia. Chest/Abdomen CTA 12/23/17 17:51 IMPRESSION: 1. There is no evidence of pulmonary emboli. 2. Multicentric right lower lobe pneumonia. Recommend follow-up imaging after treatment. Assessment & Plan - Diagnosis (1) Coronary artery disease Is this a current diagnosis for this admission?: Yes (2) Diabetes Is this a current diagnosis for this admission?: Yes (3) Pre-syncope Is this a current diagnosis for this admission?: Yes (4) Right lower lobe pneumonia Is this a current diagnosis for this admission?: Yes (5) Cardiac arrhythmia Qualifiers: Premature depolarization type: ventricular Is this a current diagnosis for this admission?: Yes Plan: Very much improved (6) Bacteremia due to Streptococcus pneumoniae Is this a current diagnosis for this admission?: Yes Plan: Secondary to pneumonia Ceftriaxone 2 g IV piggyback daily We will repeat blood cultures Patient will be switched to p.o. antibiotics if blood cultures are negative to complete 10 day treatment - Time Time Spent with patient: Patient will likely be discharged in 48 hours if repeat blood cultures are negative Time Spent with patient: 25-34 minutes
[2017-12-26] MEDS ORDERED: CEFTRIAXONE 2 GM/D5W RTU 2 GM/50 ML RTUPB IV SCH (14:00)
--- NOTE | 2017-12-26 14:33 | Progress Note ---
Provider Note Provider Note: ID Consult Note- I was asked to review this patient's chart by the Pharmacy Service. I reviewed the patient's chest x-ray, which reveals a LLL pneumonia. The patient has a penicillin-susceptible Streptococcus pneumoniae in one blood culture bottle. He is clinically improved. Recommendations: There is no reason for an extended course of therapy for this patient, even though the blood culture was positive. The prognosis is excellent with a short course (i.e., 5-7 days) of therapy. Recommend changing to IV penicillin 2 million units IV q 6 hours while he is in the hospital. He can be sent home with oral amoxicillin 500 mg TID when he is ready for discharge. Please contact me if there are questions. Humza Michel MD Pager: [phone]
--- NOTE | 2017-12-26 18:24 | XCELERA REPORT ---
[address] [address] Transthoracic Echocardiogram Report Name: APURVA BALL Age: 72 yrs Gender: Male : 1945 Patient Status: Inpatient Patient Location: [address] [place] [address] Study Date: 12/26/2017 09:05 AM Height: 66 in Weight: 201 lb BSA: 2.0 m2 Procedure: A two-dimensional transthoracic echocardiogram with color flow and Doppler was performed. Study Quality: Technically suboptimal. The study was technically difficult with many images being suboptimal in quality. Reason For Study: ARRHYTHMIA History: ARRHYTHMIA. Ordering Physician: CYNTHIA MANCERA Performed By: Alphonso Howell Interpretation Summary The left ventricle is normal in size. There is normal left ventricular wall thickness. LV EF is 60% Left ventricular systolic function is normal. Doppler measurements suggest impaired left ventricular relaxation, which is associated with grade I/IV or mild diastolic dysfunction The left ventricular wall motion is normal. There is no thrombus. The right ventricle is not well visualized secondary to technical limitations The left atrial size is normal. There is no evidence of mitral valve prolapse. There is no mitral valve stenosis. There is no mitral regurgitation noted. There is no aortic valve stenosis There is no LVOT obstruction. No aortic regurgitation is present. There is no tricuspid stenosis. There is a trace amount of tricuspid regurgitation Right ventricular systolic pressure is normal. RVSP is 23 to 28 mm of Hg , with RA mean of 5 to 10. There is no pericardial effusion. MMode/2D Measurements & Calculations RVDd: 3.5 cm LVIDd: 4.5 cm FS: 29.0 % Ao root diam: 3.1 cm IVSd: 0.86 cm LVIDs: 3.2 cm EDV(Teich): 91.2 ml LVPWd: 0.91 cmESV(Teich): 40.2 ml Ao root area: 7.4 cm2 EF(Teich): 56.0 % LA dimension: 3.7 cm LVOT diam: 2.1 cm LVOT area: 3.5 cm2 Doppler Measurements & Calculations MV E max rosa: MV P1/2t max rosa: Ao V2 max: LV V1 max P.1 cm/sec 88.2 cm/sec 134.4 cm/sec 2.4 mmHg MV A max rosa: MV P1/2t: 62.8 msec Ao max PG: LV V1 max: 89.5 cm/sec MVA(P1/2t): 3.5 cm2 7.2 mmHg 77.0 cm/sec MV E/A: 0.86 MV dec slope: LUIS A(V,D): 2.0 cm2 411.2 cm/sec2 MV dec time: 0.19 sec PA V2 max: TR max rosa: 96.4 cm/sec 210.2 cm/sec PA max PG: TR max P.7 mmHg 3.7 mmHg Left Ventricle The left ventricle is normal in size. There is normal left ventricular wall thickness. LV EF is 60%. Left ventricular systolic function is normal. Doppler measurements suggest impaired left ventricular relaxation, which is associated with grade I/IV or mild diastolic dysfunction. The left ventricular wall motion is normal. There is no thrombus. Right Ventricle The right ventricle is not well visualized secondary to technical limitations. Atria The right atrium is normal. The left atrial size is normal. Mitral Valve There is no evidence of mitral valve prolapse. There is no vegetation seen on the mitral valve. There is no mitral valve stenosis. There is no mitral regurgitation noted. Aortic Valve The aortic valve is trileaflet. The aortic valve opens well. There is no aortic valvular vegetation. There is no aortic valve stenosis. There is no LVOT obstruction. No aortic regurgitation is present. Tricuspid Valve There is no tricuspid stenosis. There is a trace amount of tricuspid regurgitation. Right ventricular systolic pressure is normal. RVSP is 23 to 28 mm of Hg , with RA mean of 5 to 10. Pulmonic Valve There is no pulmonic valvular stenosis. There is no pulmonic valvular regurgitation. Great Vessels The aortic root is normal size. Effusions There is no pericardial effusion. : CYNTHIA MANCERA > Ann Vyas
[2017-12-26] MEDS: CLOPIDOGREL BISULFATE 75 MG TABLET PO SCH (20:12)
[2017-12-26] MEDS: VALSARTAN 80 MG TABLET PO SCH (20:13)
[2017-12-26] MEDS: METOPROLOL SUCCINATE 25 MG TAB.SR.24H PO SCH (20:13)
[2017-12-26] MEDS: BIMATOPROST 0.01% OPH SOLN 2.5 ML/BOTTLE OU SCH (20:15)
[2017-12-26] MEDS: INSULIN LISPRO 100 UNIT/ML 3 ML VIAL SUBCUT PRN (22:12)
[2017-12-26] MEDS: SIMVASTATIN 40 MG TABLET PO SCH (22:12)
[2017-12-27] MEDS: IPRATROPIUM BROMIDE 0.02% NEB 0.5 MG/2.5 ML AMPUL NEB SCH ×2 (01:39→08:22)
[2017-12-27] MEDS: LEVALBUTEROL HCL NEB 1.25 MG/3 ML AMPUL NEB SCH ×2 (01:39→08:22)
[2017-12-27] MEDS: HEPARIN SOD (PORCINE) 5,000 UNIT/ML 1 ML SYRINGE SUBCUT SCH (05:49)
[2017-12-27] MEDS: LANSOPRAZOLE 30 MG TAB.RAP.DR PO SCH (05:49)
[2017-12-27 07:04] LABS: ABSOLUTE EOSINOPHILS # (AUTO) 0.1 10^3/uL (0.0-0.6); ABSOLUTE LYMPHOCYTES (AUTO) 2.1 10^3/uL (0.5-4.7); ABSOLUTE MONOCYTES (AUTO) 0.4 10^3/uL (0.1-1.4); ABSOLUTE NEUT (AUTO) 2.1 10^3/uL (1.7-8.2); BASOPHILS % (AUTO) 0.5 % (0-2); EOSINOPHILS % (AUTO) 2.1 % (0-6); HEMATOCRIT 39.7 % (37.9-51.0); HEMOGLOBIN 13.3 g/dL (13.5-17.0); LYMPHOCYTES % (AUTO) 44.3 % (13-45); MEAN CORPUSCULAR HEMOGLOBIN 28.4 pg (27.0-33.4); MEAN CORPUSCULAR HGB CONC 33.4 g/dL (32.0-36.0); MEAN CORPUSCULAR VOLUME 85 fl (80-97); MONOCYTES % (AUTO) 8.4 % (3-13); PLATELET COUNT 233 10^3/uL (150-450); RED BLOOD COUNT 4.66 10^6/uL (4.35-5.55); RED CELL DISTRIBUTION WIDTH 14.5 % (11.5-14.0); SEGMENTED NEUTROPHILS % (AUTO) 44.7 % (42-78); TOTAL CELLS COUNTED % (AUTO) 100 %; WHITE BLOOD COUNT 4.8 10^3/uL (4.0-10.5)
[2017-12-27 07:26] LABS: ANION GAP 9 (5-19); BLOOD UREA NITROGEN 14 mg/dL (7-20); CALCIUM 9.5 mg/dL (8.4-10.2); CARBON DIOXIDE 28 mmol/L (22-30); CHLORIDE 104 mmol/L (98-107); GLUCOSE 192 mg/dL (75-110); POTASSIUM 4.1 mmol/L (3.6-5.0); SODIUM 140.7 mmol/L (137-145)
[2017-12-27] MEDS: INSULIN LISPRO 100 UNIT/ML 3 ML VIAL SUBCUT PRN (09:04)
[2017-12-27] MEDS: CHOLECALCIFEROL (D3) 1,000 UNIT TABLET PO SCH (10:45)
[2017-12-27] MEDS: ASPIRIN 81 MG TABLET, ENT COATED PO SCH (10:45)
[2017-12-27] MEDS: FLUTICASONE NASAL SPRAY 50 MCG/SPRY 120 SPRAY/16 GM NASL SCH (10:45)
[2017-12-27] MEDS: BRIMONIDINE TARTRATE 0.2% OPH SOLN 5 ML OU SCH (10:46)
[2017-12-27] MEDS: TIMOLOL MALEATE 0.5% OPH SOLN 5 ML OU SCH (10:46)
[2017-12-27 12:55] VITALS: BP 162/103
--- NOTE | 2017-12-28 19:08 | PDOC DISCHARGE SUMMARY ---
General - Admit/Disc Date/PCP Admission Date/Primary Care Provider: 12/23/17 19:42 Discharge Date: 12/27/17 - Discharge Diagnosis (1) Coronary artery disease Is this a current diagnosis for this admission?: Yes (2) Diabetes Is this a current diagnosis for this admission?: Yes (3) Pre-syncope Is this a current diagnosis for this admission?: Yes (4) Right lower lobe pneumonia Is this a current diagnosis for this admission?: Yes (5) Cardiac arrhythmia Is this a current diagnosis for this admission?: Yes (6) Bacteremia due to Streptococcus pneumoniae Is this a current diagnosis for this admission?: Yes - Additional Information Resuscitation Status: Full Code Discharge Diet: As Tolerated Discharge Activity: Activity As Tolerated Prescriptions: Azithromycin [Zithromax] 500 mg PO DAILY 10 Days #20 tablet Cefpodoxime Proxetil [Vantin 200 mg Tablet] 1 tab PO Q12 #10 tab Home Medications: Aspirin [Aspirin EC] 81 mg PO DAILY 12/23/17 Bimatoprost [Lumigan 0.01% Oph Soln 2.5 ml/Bottle] 1 drop OU QPM 12/23/17 Brimonidine Tartrate/Timolol [Combigan 0.2%-0.5% Eye Drops] 1 dropperful OU BID 12/23/17 Cholecalciferol (Vitamin D3) [Vitamin D3 1000 Unit Tablet] 1,000 unit PO DAILY 12/23/17 Clopidogrel Bisulfate [Plavix 75 mg Tablet] 75 mg PO DAILY 12/23/17 Metoprolol Succinate [Toprol Xl 25 mg Tab.sr] 25 mg PO DAILY MDD LAST FILLED 07/1312/23/17 Pantoprazole Sodium [Protonix] 40 mg PO DAILY MDD LAST FILLED 07/08/17 12/23/17 Simvastatin [Zocor 40 mg Tablet] 40 mg PO QHS MDD LAST FILLED 07-08-12/23/17 Valsartan [Diovan 80 mg Tablet] 80 mg PO DAILY MDD LAST FILLED 07-09-17 Insulin Glargine,Hum.rec.anlog [Touhimanshuo Solostar] 40 unit SQ DAILY 12/24/17 Azithromycin [Zithromax] 500 mg PO DAILY 10 Days #20 tablet 12/27/17 Cefpodoxime Proxetil [Vantin 200 mg Tablet] 1 tab PO Q12 #10 tab 12/27/17 History of Present Illness Patient complains of: Cough and shortness of breath History of Present Illness: APURVA BALL is a 72 year old male with history of coronary artery disease status post coronary artery bypass graft, left bundle branch block, diabetes and dyslipidemia. Patient presents after 2-3 weeks of cough and shortness of breath which was acutely worse prior to presentation resulting in presyncope. In the emergency room is found to have a left lower lobe infiltrate on CT, he started on empiric antibiotics and for the hospitalist for admission. Patient denies previous pneumonia he admits poor dentition and disintegration of partials which he thinks he may have ingested. He denies chest pain nausea, vomiting or recent antibiotics. Hospital Course Hospital Course: This is a 72-year-old who was admitted with pneumonia Patient had bacteremia with strep pneumonia which was pansensitive Patient was initially treated with ceftriaxone and Zithromax His condition improved greatly rapidly He was somewhat hypoxemic on admission but very soon ambulate without any nasal O2 He had no chest pain no shortness of breath Repeat blood cultures were negative 12/26/17 14:04 Blood Culture - Preliminary Blood NO GROWTH AFTER 48 HOURS 12/26/17 13:11 Blood Culture - Preliminary Blood NO GROWTH AFTER 48 HOURS 12/23/17 22:15 Blood Culture - Preliminary Blood NO GROWTH 4 DAYS 12/23/17 20:00 Blood Culture - Final Blood Streptococcus Pneumoniae Patient was discharged in [facility] to complete 10 day treatment During his hospitalization he did not have any chest pain He was monitored did not have any significant arrhythmia Troponins remain negative 12/23/17 12/23/17 12/24/17 17:04 20:00 04:02 Troponin I < 0.012 < 0.012 0.015 12/24/17 11:47 Troponin I < 0.012 Echocardiogram was performed It showed a normal EF at 70% with grade 2/4 diastolic dysfunction Patient's blood sugars were around 190-200 Patient was discharged on his prior medical regimen to be followed by his primary care physician Physical Exam Vital Signs: Temp Pulse Resp BP Pulse Ox 97.7 F 79 16 162/103 H 100 12/27/17 12:51 12/27/17 12:51 12/27/17 12:51 12/27/17 12:51 12/27/17 12:51 Pulse Oximeter Continuous Start: 12/23/17 19: 36 Freq: RTQ4 Status: Complete Document 12/26/17 14:51 LDA (Rec: 12/26/17 14:51 LDA [email or web address]) Pulse Oximetry Assessment Equipment Usage Equipment Discontinued Continuous SpO2 Machine # 6 Intake & Output 12/27/17 12/28/17 12/29/17 00:59 00:59 00:59 Intake Total 1215 555 Balance 1215 555 Weight 93 kg 93.5 kg General appearance: PRESENT: no acute distress, cooperative, mild distress, well -developed, well-nourished Head exam: PRESENT: atraumatic, normocephalic Eye exam: PRESENT: conjunctiva pink, EOMI, PERRLA. ABSENT: scleral icterus Mouth exam: PRESENT: moist, tongue midline Neck exam: ABSENT: carotid bruit, JVD, lymphadenopathy, thyromegaly Respiratory exam: PRESENT: accessory muscle use, clear to auscultation jaime, crackles, rales, tachypnea. ABSENT: rhonchi, wheezes Cardiovascular exam: PRESENT: RRR. ABSENT: diastolic murmur, rubs, systolic murmur Pulses: PRESENT: normal dorsalis pedis pul Vascular exam: PRESENT: normal capillary refill GI/Abdominal exam: PRESENT: normal bowel sounds, soft. ABSENT: distended, guarding, mass, organolmegaly, rebound, tenderness Extremities exam: PRESENT: full ROM. ABSENT: calf tenderness, clubbing, pedal edema Neurological exam: PRESENT: alert, awake, oriented to person, oriented to place , oriented to time, oriented to situation, CN II-XII grossly intact. ABSENT: motor sensory deficit Skin exam: PRESENT: dry, intact, warm. ABSENT: cyanosis, rash Results Laboratory Results: 12/27/17 06:08 12/27/17 06:08 12/23/17 12/23/17 12/24/17 20:00 20:00 04:02 Creatine Kinase 102 CK-MB (CK-2) 0.52 0.62 Troponin I < 0.012 0.015 12/24/17 12/24/17 12/24/17 04:02 11:47 11:47 Creatine Kinase 100 98 CK-MB (CK-2) 0.91 Troponin I < 0.012 Impressions: Chest X-Ray 12/23/17 15:55 IMPRESSION: Right lower lobe pneumonia. Chest/Abdomen CTA 12/23/17 17:51 IMPRESSION: 1. There is no evidence of pulmonary emboli. 2. Multicentric right lower lobe pneumonia. Recommend follow-up imaging after treatment. Qualifiers - * PATIENT BEING DISCHARGED WITH ANY OF THE FOLLOWING DIAGNOSIS: No
== END 2017-12-27 13:38 | disposition home or self-care (01) | DRG 194 ==
LOC: ER 13:07 → EH 19:42 → OBSVTOIN 19:42 → 4S 21:15
PROVIDERS: ADMIT Internal Medicine; ATTEND Internal Medicine
PROC: 3E0F73Z Introduction of Anti-inflammatory into Respiratory Tract, Via Natural or Artificial Opening (ICD-10-PCS; principal; 2017-12-23)
DX: J18.9 Pneumonia, unspecified organism (principal); R78.81 Bacteremia; I47.0 Re-entry ventricular arrhythmia; I25.10 Atherosclerotic heart disease of native coronary artery without angina pectoris; E11.9 Type 2 diabetes mellitus without complications; J13 Pneumonia due to Streptococcus pneumoniae; B95.3 Streptococcus pneumoniae as the cause of diseases classified elsewhere; E78.00 Pure hypercholesterolemia, unspecified; I44.7 Left bundle-branch block, unspecified; I11.0 Hypertensive heart disease with heart failure; I49.3 Ventricular premature depolarization; Z79.899 Other long term (current) drug therapy; Z79.4 Long term (current) use of insulin; Z95.1 Presence of aortocoronary bypass graft; Z86.711 Personal history of pulmonary embolism; Z95.5 Presence of coronary angioplasty implant and graft; Z79.82 Long term (current) use of aspirin; Z88.6 Allergy status to analgesic agent; Z88.4 Allergy status to anesthetic agent; Z91.048 Other nonmedicinal substance allergy status; Z79.02 Long term (current) use of antithrombotics/antiplatelets; Z83.3 Family history of diabetes mellitus
CPT/HCPCS: 36415; 71046; 71275; 80048; 80053; 80202; 81001; 82550; 82553; 82565; 82962; 83880; 84484; 85025; 85027; 85379; 87040; 87077; 87186; 93005; 93010; 93306; 94640; 94667; 94668; 94762; 94799; 96365; 99285; J0696; J1644; J1815; J1956; J3370; J3490; J7030; J7060